=== PATIENT | male | born 1960 | race Caucasian/White ===

== ENCOUNTER 2020-01-17 20:45 | Emergency (ER) | payer SELFPAY ==
--- NOTE | 2020-01-17 21:14 | EDM.PDOC ---
ED HPI GENERAL MEDICAL PROBLEM - General Chief Complaint: Eye Problems Stated Complaint: SOMETHING IN RIGHT EYE Time Seen by Provider: 01/17/20 21:06 Source of Information: Reports: Patient History Limitations: Reports: No Limitations - History of Present Illness INITIAL COMMENTS - FREE TEXT/NARRATIVE: Patient presents for evaluation of possible residual foreign material in his right eye. Several hours prior to arrival here, he was crawling under a lawnmower and when a trung of wind came up, robert debris from the molar blue into his right eye. He rubbed the eye, used eyedrops, used a Q-tip to attempt to get material out of it. He states that he saw some kind of sliver-like material on the medial portion of the right globe and had a coworker use a tweezer to remove it. He was concerned whether anything else was still remaining on the surface of the eye or embedded in it. His eye feels better than it did when the incident happened initially. Eyesight is fine. Onset: Today Location: Reports: Head Quality: Reports: Ache Severity: Mild Improves with: Reports: None Worsens with: Reports: None Context: Reports: Activity Associated Symptoms: Reports: No Other Symptoms - Related Data Allergies Allergy/AdvReac Type Severity Reaction Status Date / Time No Known Allergies Allergy Verified 01/17/20 20:57 Home Meds: Home Meds Clopidogrel Bisulfate [Clopidogrel] 75 mg PO DAILY 01/17/20 [History] Pravastatin Sodium [Pravastatin (Pravachol)] 40 mg PO DAILY 01/17/20 [History] lisinopriL [Lisinopril] 5 mg PO DAILY 01/17/20 [History] Past Medical History Cardiovascular History: Reports: High Cholesterol, Hypertension, PR, Stents Social & Family History - Tobacco Use Smoking Status *Q: Never Smoker ED ROS GENERAL - Review of Systems Review Of Systems: Comprehensive ROS is negative, except as noted in HPI. ED EXAM GENERAL W FULL EYE - Physical Exam Exam: See Below Text/Narrative:: This is a conversant adult male seated in room 11. His right eye is diffusely injected prior to exam. Exam Limited By: No Limitations General Appearance: Alert, No Apparent Distress Eye Exam: Right Eye: Conjunctival Injection, Corneal Abrasion (Medial and lateral areas of surface disruption. No residual foreign bodies are seen with slit lamp examination. Eversion of both eyelids does not demonstrate retained foreign bodies.), PERRL Eyelids: Right: Erythema, Lid Everted for Exam Conjunctiva & Sclera: Right: Conjunctival Edema, Injected Extraocular Movements: Bilateral: Intact Pupils: Normal Accommodation Course - Vital Signs Last Recorded V/S: Last Vital Signs Temp 36.7 C 01/17/20 20:59 Pulse 99 01/17/20 20:59 Resp 16 01/17/20 20:59 BP 131/89 01/17/20 20:59 Pulse Ox 96 01/17/20 20:59 - Re-Assessments/Exams Free Text/Narrative Re-Assessment/Exam: 01/17/20 21:59 No retained foreign bodies were seen on the surface of the eye or on either of the eyelid mucosal surfaces. I recommend cold water cloths to the right eyelids with changing cold water every 10 minutes or so as the cloth warms up. He should avoid rubbing the eye. Use of artificial tears or Lacri-Lube to the eye will improve comfort. We discussed water rinsing techniques for any future eye foreign body involvement. He was discharged in stable condition Departure - Departure Time of Disposition: 21:23 Disposition: Home, Self-Care 01 Condition: Good Clinical Impression: Corneal abrasion Qualifiers: Encounter type: initial encounter Laterality: right Qualified Code(s): S05.01XA - Injury of conjunctiva and corneal abrasion without foreign body, right eye, initial encounter - Discharge Information *PRESCRIPTION DRUG MONITORING PROGRAM REVIEWED*: Not Applicable *COPY OF PRESCRIPTION DRUG MONITORING REPORT IN PATIENT PONCHO: Not Applicable Instructions: Abrasion, [id number] Referrals: Jon Stubbs MD [Primary Care Provider] - Forms: ED Department Discharge Additional Instructions: Apply cold water cloths over the right eyelids, refreshing the cold water every 10 minutes or so as it is warm to by your face. If you find artificial tears or an eye gel called Lacri-Lube, that can be put in the eye as needed to improve comfort No foreign objects were seen on the surface of the eye or the eyelids tonight. It may feel irritated for a couple of days yet and it will be a little more light-sensitive because of the surface injury to the eye. If not improved in 3 or 4 days, return here or check with an eye doctor. Sepsis Event Note - Evaluation Sepsis Screening Result: No Definite Risk - Focused Exam Vital Signs: Vital Signs Temp Pulse Resp BP Pulse Ox 05/21/20 20:59 36.7 C 99 16 131/89 96 01/17/20 20:57 36.7 C 99 16 131/89 96 Date Exam was Performed: 01/17/20 Time Exam was Performed: 21:52
== END 2020-01-17 21:30 | disposition home or self-care (01) ==
LOC: JP.ED 20:45
DX: S05.01XA Injury of conjunctiva and corneal abrasion without foreign body, right eye, initial encounter (principal); E78.00 Pure hypercholesterolemia, unspecified; I10 Essential (primary) hypertension; I25.2 Old myocardial infarction; Z79.02 Long term (current) use of antithrombotics/antiplatelets; Z79.899 Other long term (current) drug therapy; W22.8XXA Striking against or struck by other objects, initial encounter
CPT/HCPCS: 99282; 99283